=== PATIENT | female | born 1980 | race Caucasian/White ===

== ENCOUNTER 2020-11-24 15:26 | Emergency (ER) | payer MEDICAID ==
[~2020-11-24] VITALS: Ht 157.5 cm; Wt 62.1 kg
[2020-11-24 15:32] VITALS: BP 118/78
[2020-11-24 15:52] LABS: BASOPHILS % (AUTO) 0.4 % (0.0-2.0); EOSINOPHILS # (AUTO) 0.1 K/uL (0-0.4); EOSINOPHILS % (AUTO) 1.1 % (0.0-4.0); HEMATOCRIT 39.4 % (36-48); HEMOGLOBIN 13.5 g/dL (12.0-16.0); LYMPHOCYTES % (AUTO) 23.2 % (20.5-51.1); MEAN CORPUSCULAR HEMOGLOBIN 29 pg (27-31); MEAN CORPUSCULAR HGB CONC 34 g/dL (33-37); MEAN CORPUSCULAR VOLUME 83.9 fL (80-94); MONOCYTES # (AUTO) 0.6 K/uL (0.8-1.0); MONOCYTES % (AUTO) 6.9 % (1.7-9.3); NEUTROPHILS % (AUTO) 68.4 % (42.2-75.2); PLATELET COUNT (AUTO) 300 K/uL (140-450); RED CELL DISTRIBUTION WIDTH 13.7 % (11.6-13.7); WHITE BLOOD COUNT (AUTO) 8.8 K/uL (4.8-10.8)
[2020-11-24 16:06] LABS: PROTHROMBIN TIME 10.9 secs (10.8-13.4)
[2020-11-24 16:07] LABS: ANION GAP 11.2 (8-16); CARBON DIOXIDE 28.2 mmol/L (21-32); CREATININE 0.8 mg/dL (0.6-1.3); POTASSIUM 3.4 mmol/L (3.5-5.1); TOTAL BILIRUBIN 0.5 mg/dL (0.0-1.0)
[2020-11-24] MEDS ORDERED: ACET-10509 PO (17:35)
[2020-11-24] MEDS ORDERED: NAPR-54 PO (17:35)
[2020-11-24 18:05] VITALS: BP 118/78
== END 2020-11-24 18:05 | disposition home or self-care (01) ==
LOC: MED 15:26
DX: R07.89 Other chest pain (principal); M79.645 Pain in left finger(s); M79.644 Pain in right finger(s); Y04.0XXA Assault by unarmed brawl or fight, initial encounter; Y93.89 Activity, other specified; Y92.89 Other specified places as the place of occurrence of the external cause; Y99.8 Other external cause status
CPT/HCPCS: 36415; 71046; 80053; 83880; 84484; 85025; 85610; 85730; 93005; 99285